=== PATIENT | female | born 1965 | race Caucasian/White ===

== ENCOUNTER 2025-03-15 08:20 | Emergency (ER) | payer SELFPAY ==
[~2025-03-15] VITALS: Ht 170.2 cm; Wt 75.0 kg
[2025-03-15 08:24] VITALS: BP 137/86; PULSE 87; RESP 18; TEMP 36.8; O2SAT 97
[2025-03-15 08:44] VITALS: TEMP 98.2
[2025-03-15] MEDS: ACETAMINOPHEN 325MG TABLET PO ONE (08:44)
[2025-03-15] MEDS ORDERED: TOPUD MT (09:25)
== END 2025-03-15 09:41 | disposition home or self-care (01) ==
LOC: ER 08:20
DX: S40.011A Contusion of right shoulder, initial encounter (principal); S80.01XA Contusion of right knee, initial encounter; V89.2XXA Person injured in unspecified motor-vehicle accident, traffic, initial encounter; Y93.89 Activity, other specified; Y92.410 Unspecified street and highway as the place of occurrence of the external cause; Y99.8 Other external cause status
CPT/HCPCS: 73030; 73560; 99284